=== PATIENT | female | born 1955 ===

== ENCOUNTER 2016-09-13 06:51 | Day surgery (SDC) | payer OTHER ==
[2016-09-13 08:11] VITALS: BMI 56.4
--- NOTE | 2016-09-13 09:20 | CP.SDSHP ---
Same Day Surgery H & P - History Proposed Procedure: colonoscopy Pre-Op Diagnosis: screening - Previous Medical/Surgical History Cardiac: Hypertension Endocrine/Metabolic: Diabetes, Obesity - Allergies Allergies: Allergies No Known Allergies Allergy (Verified 09/13/16 08:11) - Physical Exam General Appearance: Good. Obese Vital Signs: Vital Signs 09/13/16 07:47 Temperature 97.8 F Pulse Rate 100 H Respiratory 20 Rate Blood Pressure 169/58 H O2 Sat by Pulse 97 Oximetry Mental Status: Alert & Oriented x3 Neuro: WNL Heart: WNL Lungs: WNL GI: WNL - {Optional Preform as Required} Abdomen: WNL - Date & Time Date: 09/13/16 Time: 09:19 Short Stay Discharge - Short Stay Discharge Admitting Diagnosis/Reason for Visit: SCREENING Disposition: HOME/ ROUTINE
[2016-09-13] MEDS ORDERED: Propofol 10 mg/ml Inj (20 ML) ONE (09:22)
[2016-09-13] MEDS ORDERED: Lactated Ringer's 1,000 ML IV SCH (09:30)
[2016-09-13 11:24] VITALS: BP 133/57; PULSE 81; RESP 19; TEMP 97.3; O2SAT 98
== END 2016-09-13 11:10 | disposition home or self-care (01) ==
LOC: C.ENDO 06:51
PROVIDERS: ATTEND Internal Medicine Gastroenterology
DX: K57.90 Diverticulosis of intestine, part unspecified, without perforation or abscess without bleeding (principal); K64.8 Other hemorrhoids; D12.5 Benign neoplasm of sigmoid colon; E66.9 Obesity, unspecified; I10 Essential (primary) hypertension; Z68.43 Body mass index [BMI] 50.0-59.9, adult
CPT/HCPCS: 45385; 82948; 88305; J2704; J3010; J7120

== ENCOUNTER 2018-06-13 06:17 | Outpatient (CLI) | payer OTHER | END 2018-06-13 06:18 | disposition home or self-care (01) | LOC: C.CARD 06:17 | DX: Z01.810 Encounter for preprocedural cardiovascular examination (principal); E78.2 Mixed hyperlipidemia; I10 Essential (primary) hypertension; E11.9 Type 2 diabetes mellitus without complications ==